=== PATIENT | female | born 1985 | race Caucasian/White ===

== ENCOUNTER 2021-02-23 15:39 | Emergency (ER) | payer MEDICAID ==
[~2021-02-23] VITALS: Ht 170.2 cm; Wt 110.9 kg
[~2021-02-23 15:39] MED LIST: CLOT15CR10 TP; FURO-150 PO; HYDR28CR14 TOP; MECL12.5 PO; MICO90PO TOP; OMEP-84 PO; ONDA8TAB9 PO; ZIPR20CA2 PO; ZIPR60CA5 PO
[2021-02-23 15:59] VITALS: BP 133/88
[2021-02-23 17:02] LABS: BASOPHILS # (AUTO) 0.1 X10'3 (0-0.2); BASOPHILS % (AUTO) 0.5 % (0-1); EOSINOPHILS # (AUTO) 0.2 X10'3 (0-0.9); EOSINOPHILS % (AUTO) 1.2 % (0-6); HEMATOCRIT 43.7 % (35.0-45.0); HEMOGLOBIN 14.5 g/dl (12.0-16.0); LYMPHOCYTES # (AUTO) 3.9 X10'3 (1.1-4.8); LYMPHOCYTES % (AUTO) 29.6 % (21-51); MEAN CORPUSCULAR HEMOGLOBIN 28.4 PG (27.0-31.0); MEAN CORPUSCULAR HGB CONC 33.1 g/dL (33.0-36.5); MEAN CORPUSCULAR VOLUME 85.9 FL (78-98); MEAN PLATELET VOLUME 7.3 FL (7.4-10.4); MONOCYTES # (AUTO) 0.7 X10'3 (0-0.9); MONOCYTES % (AUTO) 4.9 % (2-12); NEUTROPHILS # (AUTO) 8.5 X10'3 (1.8-7.7); NEUTROPHILS % (AUTO) 63.8 % (42-75); PLATELET COUNT 414 X10'3 (140-440); RED BLOOD COUNT 5.08 X10'6 (4.20-5.60); RED CELL DISTRIBUTION WIDTH 15.3 % (11.5-14.5); WHITE BLOOD COUNT 13.3 X10'3 (4.5-11.0)
[2021-02-23] MEDS ORDERED: PNV1TABL75 PO (17:43)
== END 2021-02-23 18:38 | disposition home or self-care (01) ==
LOC: ER 15:40
DX: O20.9 Hemorrhage in early pregnancy, unspecified (principal); F17.200 Nicotine dependence, unspecified, uncomplicated; F12.90 Cannabis use, unspecified, uncomplicated; F15.90 Other stimulant use, unspecified, uncomplicated; Z56.0 Unemployment, unspecified; Z59.00 Homelessness unspecified; Z3A.01 Less than 8 weeks gestation of pregnancy
CPT/HCPCS: 36415; 84702; 85025; 86900; 86901; 99283

== ENCOUNTER 2021-03-14 10:07 | Emergency (ER) | payer MEDICAID ==
[~2021-03-14] VITALS: Ht 170.2 cm; Wt 109.1 kg
[~2021-03-14 10:07] MED LIST changes: +PNV1TABL75 PO
[2021-03-14 10:30] VITALS: BP 120/77
--- NOTE | 2021-03-14 15:02 | NUR ---
PT LEFT WITHOUT REPEAT VITALS OR TAKING DC INSTRUCTIONS.
== END 2021-03-14 15:05 | disposition home or self-care (01) ==
LOC: ER 10:08
DX: O46.8X1 Other antepartum hemorrhage, first trimester (principal); F12.10 Cannabis abuse, uncomplicated; F15.10 Other stimulant abuse, uncomplicated; F20.9 Schizophrenia, unspecified; Z59.00 Homelessness unspecified; Z56.0 Unemployment, unspecified
CPT/HCPCS: 36415; 76801; 76816; 76817; 84702; 93976; 99284

== ENCOUNTER 2021-03-15 12:42 | Emergency (ER) | payer MEDICAID ==
[~2021-03-15] VITALS: Ht 170.2 cm; Wt 109.0 kg
[2021-03-15 12:46] VITALS: BP 144/91
== END 2021-03-15 15:31 | disposition home or self-care (01) ==
LOC: ER 12:43
DX: O26.891 Other specified pregnancy related conditions, first trimester (principal); O20.9 Hemorrhage in early pregnancy, unspecified; F20.9 Schizophrenia, unspecified; F12.90 Cannabis use, unspecified, uncomplicated; F15.90 Other stimulant use, unspecified, uncomplicated; Z72.89 Other problems related to lifestyle; Z56.0 Unemployment, unspecified; Z59.00 Homelessness unspecified; Z79.2 Long term (current) use of antibiotics; Z79.899 Other long term (current) drug therapy; Z3A.00 Weeks of gestation of pregnancy not specified
CPT/HCPCS: 99281

== ENCOUNTER 2021-03-16 10:22 | Emergency (ER) | payer MEDICAID ==
[~2021-03-16] VITALS: Ht 170.2 cm; Wt 109.1 kg
[2021-03-16 11:04] VITALS: BP 108/72
[2021-03-16] MEDS ORDERED: nicotine 21mg patch - 24 hr TD ONE (14:40)
--- NOTE | 2021-03-16 14:58 | NUR ---
PATIENT ACCEPTED TO [facility] ER TRANSFER @ [id number]
[2021-03-16 15:33] LABS: BASOPHILS % (AUTO) 0.3 % (0-1); EOSINOPHILS # (AUTO) 0.2 X10'3 (0-0.9); EOSINOPHILS % (AUTO) 1.2 % (0-6); HEMATOCRIT 43.8 % (35.0-45.0); HEMOGLOBIN 14.3 g/dl (12.0-16.0); LYMPHOCYTES # (AUTO) 4.4 X10'3 (1.1-4.8); LYMPHOCYTES % (AUTO) 31.2 % (21-51); MEAN CORPUSCULAR HEMOGLOBIN 28.1 PG (27.0-31.0); MEAN CORPUSCULAR HGB CONC 32.7 g/dL (33.0-36.5); MEAN PLATELET VOLUME 7.6 FL (7.4-10.4); MONOCYTES # (AUTO) 0.7 X10'3 (0-0.9); MONOCYTES % (AUTO) 5.1 % (2-12); NEUTROPHILS # (AUTO) 8.8 X10'3 (1.8-7.7); NEUTROPHILS % (AUTO) 62.2 % (42-75); PLATELET COUNT 445 X10'3 (140-440); RED CELL DISTRIBUTION WIDTH 15.4 % (11.5-14.5); WHITE BLOOD COUNT 14.1 X10'3 (4.5-11.0)
[2021-03-16 15:41] LABS: ALANINE AMINOTRANSFERASE 28 U/L (12-78); ALBUMIN 3.4 G/DL (3.4-5.0); ALBUMIN/GLOBULIN RATIO 0.7 (1.1-1.5); ALKALINE PHOSPHATASE 104 IU/L (46-116); ANION GAP 8 (8-16); ASPARTATE AMINO TRANSFERASE 18 U/L (10-37); BILIRUBIN,TOTAL 0.3 MG/DL (0.1-1.0); BLOOD UREA NITROGEN 9 MG/DL (7-18); BUN/CREATININE RATIO 15.3 (6.6-38.0); CALCIUM 8.7 MG/DL (8.5-10.1); CHLORIDE 101 MMOL/L (99-107); CREATININE 0.59 MG/DL (0.40-0.90); GLUCOSE 86 MG/DL (70-104); POTASSIUM 3.5 MMOL/L (3.5-5.1); SODIUM 135 MMOL/L (135-145); TOTAL CARBON DIOXIDE 25.6 MMOL/L (24-32); TOTAL PROTEIN 8.2 G/DL (6.4-8.2); eGFR > 90 ML/MIN
== END 2021-03-16 15:48 | disposition short-term general hospital (02) ==
LOC: ER 10:22
DX: O00.80 Other ectopic pregnancy without intrauterine pregnancy (principal); Z20.822 Contact with and (suspected) exposure to COVID-19; F20.9 Schizophrenia, unspecified; F12.90 Cannabis use, unspecified, uncomplicated; F15.90 Other stimulant use, unspecified, uncomplicated; Z3A.10 10 weeks gestation of pregnancy; Z72.89 Other problems related to lifestyle; Z56.0 Unemployment, unspecified; Z59.00 Homelessness unspecified; Z79.2 Long term (current) use of antibiotics; Z79.899 Other long term (current) drug therapy
CPT/HCPCS: 36415; 76817; 80053; 84702; 85025; 85610; 87635; 99284; C9803

== ENCOUNTER 2022-10-04 21:19 | Emergency (ER) | payer MEDICAID | END 2022-10-04 22:46 | disposition left against medical advice (07) | LOC: ER 21:19 | DX: R55 Syncope and collapse (principal); Z53.21 Procedure and treatment not carried out due to patient leaving prior to being seen by health care provider ==

== ENCOUNTER 2024-11-07 18:50 | Emergency (ER) | payer MEDICAID ==
[~2024-11-07] VITALS: Ht 170.2 cm; Wt 125.0 kg
[2024-11-07 18:56] VITALS: BP 125/100; PULSE 120; RESP 18; O2SAT 100
--- NOTE | 2024-11-07 21:21 | Physician Documentation ---
History of Present Illness ~ Chief Complaint: Abscess Stated Complaint: INFECTION ON BACK Time Seen by MD: 19:19 Primary Medical Doctor: Rudy gilbert. HPI This is a 39-year-old female who presents with an area of pain and swelling to her upper middle back present and worsening over the last approximately two weeks patient reports no fever, chills, or other systemic symptoms. Patient reports no other acute symptoms or concerns. Tetanus Within 5 Years: No Medication Reconciliation Allergies: Coded Allergies: No Known Allergies (Unverified , 02/23/21) Scheduled Clotrimazole (Clotrimazole), 1 APPLIC TP BID Furosemide (Lasix), 1 TABLET PO DAILY Hydrocortisone (hydrocortisone 1% cream), 1 APPLIC TOP Q12H Meclizine Hcl* (Antivert*), 12.5 MG PO Q6H Miconazole Nitrate (Lotrimin AF), 1 APPLIC TOP BID Omeprazole* (Prilosec*), 40 MG PO DAILY Pnv No.122/Iron/Folic Acid ( Multi Tablet), 1 TAB PO DAILY Sulfamethoxazole/Trimethoprim (Bactrim Ds Tablet), 1 TAB PO Q12H Ziprasidone Hcl (Geodon), 20 MG PO DAILY, (Reported) Ziprasidone Hcl (Geodon), 60 MG PO HS, (Reported) Scheduled PRN Ondansetron (Zofran Odt), 8 MG PO TID PRN PRN for nausea/vomiting Past Medical History Past Medical History: Schizophrenia Past Surgical History: no surgical history Last Menstrual Period: Oct 21, 2024 Alcohol Use: Occasionally Drug Use: marijuana, methamphetamine Lives with: Spouse Lives In: Homeless Occupation: unemployed Review of Systems ROS As stated above in the HPI, otherwise all systems are reviewed and negative. Physical Exam Vital Signs: Temperature: 98.1, Heart Rate: 120, Respiratory Rate: 18, BP: 125/100, Pulse Oximetry: 100, Weight: 125.000 Physical Exam VITALS: Reviewed and as above. GENERAL: Alert, nontoxic appearing, no apparent distress. RESPIRATORY: No increased work of breathing, no respiratory distress, speaking in full clear sentences SKIN: Approximately 5 cm round slightly raised slightly erythematous fluctuant tender area to the upper medial back with minimal surrounding induration, no deep pain with palpation Procedures I & D Procedure : Site: Medial upper back Anesthesia: Lidocaine Volume Anesthetic (mls): 4 Blade Size: 11 Prep/Supplies: betadine prep, drapes applied, dressing applied Incision: mass incised, pus drained, blood drained Tolerated Procedure Well?: yes, no complications Procedure Note Written informed consent obtained prior to procedure Progress Results/Orders Results/Orders Completed Orders - JENNIFER ROSS PATHOLOGY TECHNICIAN Sulfamethox/Trimetho. Ds Tab (Septra Ds (11/07/24 21:30) Vital Signs 11/07/24 11/07/24 18:56 21:41 Temp 98.1 98.1 Pulse 120 Resp 18 B/P (MAP) 125/100 Pulse Ox 100 Medical Decision Making Findings This otherwise healthy and well appearing 39 year-old female presented with an area of pain and swelling to her upper middle back progressively increasing in size and pain over the last two weeks without fever, chills, or other systemic symptoms. Tenderness, erythema, and fluctuance on exam without significant surrounding induration or deep tenderness on palpation is consistent with uncomplicated abscess. History is reassuring as patient reports no fever, chills, or other systemic symptoms. There is no evidence of rapidly progressing symptoms, crepitus, pain out of proportion, pain away from site or other signs/symptoms concerning for necrotizing fasciitis, myositis, or other deep ti ssue infection. I considered other high-risk diagnoses such as acute osteomyelitis, deep space abscess, septic joint, foreign body, or deep vein thrombosis or septic phlebitis. Written consent obtained and abscess drained without complication. Physical exam is otherwise benign, patient is non-toxic and well-appearing, afebrile, and hemodynamically stable. Patient is appropriate for outpatient follow up and will be discharge with Rx for oral antibiotic. Home care and follow up instructions provided. Patient given strict return precautions including rapidly progressing symptoms, pain out of proportion/severe pain, mucosal involvement, and/or fever > 100.4. Patient verbalized understanding of all discharge instructions. Differential Dx:Considerations: Include: Abscess, Bacteremia, Cellulitis, Erysipelas, Felon, Gas gangrene, Hidrademitis suppurativa, Impetigo, Lymphangitis, Osteromyelitis, Septicemia Departure Time of Disposition: 21:23 Disposition: 01 HOME / SELF CARE / HOMELESS Impression: Primary Impression: Abscess Condition: Improved Discharge Instructions: Abscess, Care After Additional Instructions: Please take the antibiotics as prescribed. Wash the area gently twice a day and change the dressing, follow up in 3-5 days for a wound recheck with the [facility] or your primary care provider. Please follow up with your primary care provider in the next few days. You may use ibuprofen and or Tylenol as needed for pain and fever as directed by [id number] packaging. Please return to the emergency department for any new or worsening concerning symptoms including but not limited to worsening pain and swelling to the area or if you develop a fever over 100.4 that does not lower with ibuprofen or Tylenol. Referrals: NO PRIMARY CARE PROVIDER (PCP) Prescriptions Sulfamethoxazole/Trimethoprim (Bactrim Ds Tablet) 800 Mg-160 Mg Tablet 1 TAB PO Q12H for 7 Days, #14 TAB Prov: JENNIFER ROSS 11/07/24 Education Educated: Patient Educated regarding: diagnosis, treatment, prognosis, need for follow up Signature Scribe Signature: No Scribe Attestation: The note accurately reflects work and decisions made by me.LISSY Valentin 11/08/24 11:34 JENNIFER ROSS Nov 07, 2024 21:21
[2024-11-07] MEDS ORDERED: SULF1TAB49 PO (21:27)
[2024-11-07] MEDS: sulfamethoxazole/trimethoprim DS (800/160mg) tablet PO ONE (21:37)
[2024-11-07 21:41] VITALS: TEMP 98.1
== END 2024-11-07 21:43 | disposition home or self-care (01) ==
LOC: ER 18:51
DX: L02.212 Cutaneous abscess of back [any part, except buttock and flank] (principal); F20.9 Schizophrenia, unspecified; F12.90 Cannabis use, unspecified, uncomplicated; F15.90 Other stimulant use, unspecified, uncomplicated
CPT/HCPCS: 10060; 99283; A6407; A6258; A6449